=== PATIENT | male | born 1950 | race Caucasian/White ===

== ENCOUNTER 2024-05-28 09:27 | Emergency (ER) | payer BC, MEDICARE, SELFPAY ==
--- NOTE | ~2024-05-28 | XR_ITS ---
EXAMINATION: XR shoulder RT min 2V DATE: 05/28/2024 11:26 INDICATION: Right shoulder pain. TECHNIQUE: 5 views of right shoulder were obtained. COMPARISON: None. FINDINGS: Alignment is normal. No acute fracture. There are old healed right rib fractures. There is mild osteoarthritis of glenohumeral joint and severe osteoarthritis of acromioclavicular joint. IMPRESSION: 1. Polyarticular osteoarthritis. Reviewed, dictated and finalized at location A. WRITER
[2024-05-28 09:39] VITALS: BP 210/84; PULSE 74; RESP 18; TEMP 36.4; O2SAT 100
[2024-05-28] MEDS: LOSARTAN POTASSIUM 100 MG TABLET PO (11:44)
--- NOTE | 2024-05-28 11:48 | ED_ITS ---
HPI - Extremity Problem General Chief complaint: Extremity Problem,Nontraumatic Stated complaint: R arm pain Time Seen by Provider: 05/28/24 11:00 History of Present Illness HPI Narrative: 73-year-old male with history of hypertension presents with daughter at bedside for a spontaneous bruise to his right arm for the past few days. Patient denies injury trauma to the arm. 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 He is reporting some pain to the shoulder but otherwise no tenderness or pain. No numbness or tingling. He is not anticoagulated. Denies history of liver disease. He is found to be hypertensive in the ED and states he ran out of his blood pressure medications 1 week ago. He states his daughter ordered some more than he is supposed to pick them up tomorrow. He denies chest pain or shortness of breath, vision changes, decreased urine output. Related Data Allergies Allergy/AdvReac Type Severity Reaction Status Date / Time No Known Allergies Allergy Verified 05/28/24 11:43 Review of Systems Review of Systems: All systems reviewed & are unremarkable except as noted in HPI and below Exam Narrative: GENERAL: Well-appearing, well-nourished, and in no acute distress. HEAD: Normocephalic, atraumatic. EYES: EOMI. ENT: Nares clear, no rhinorrhea or epistaxis. Mucous membranes moist. NECK: Supple. CHEST: Clear to auscultation. No respiratory distress. HEART: Regular rate and rhythm. No murmur heard. Normal peripheral pulses EXTREMITIES: Normal range of motion. No edema. SKIN: Large area of ecchymosis to the volar aspect of the right upper arm extending from the proximal humerus to the elbow, and no palpable hematoma, fluctuation, induration, significant bony tenderness to the humerus. There is some diffuse tenderness to the right shoulder. Patient has full active and passive range of motion of all joints of the right upper extremity. Sensation intact throughout. DP pulse 2 +. Radial, median, ulnar and axillary nerves are intact. NEURO: No focal deficits. Alert and oriented x3 Course Vital Signs Vital signs: Vital Signs Temperature 97.6 F 05/28/24 09:39 Pulse Rate 74 05/28/24 09:39 Respiratory Rate 18 05/28/24 09:39 Blood Pressure 210/84 H 05/28/24 09:39 Pulse Oximetry 100 05/28/24 09:39 Oxygen Delivery Room Air 05/28/24 09:39 Temperature 97.6 F 05/28/24 09:39 Pulse Rate 74 05/28/24 09:39 Respiratory Rate 18 05/28/24 09:39 Blood Pressure 210/84 H 05/28/24 09:39 Pulse Oximetry 100 05/28/24 09:39 Oxygen Delivery Room Air 05/28/24 09:39 MDM - Extremity (Nontraumatic) MDM Narrative Medical decision making narrative: 73-year-old male with history of hypertension presents to emergency department for a bruise to his right upper arm for the past few days. 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 Exam is significant for a large contusion to the volar aspect of the right upper arm. He is does have minimal tenderness to the right shoulder, therefore x-ray obtained which shows severe osteoarthritis. He is neurovascularly intact and has full active and passive range of motion of all joints of the upper extrem ity. Distal pulses intact. No other significant tenderness. He is not anticoagulated. Overall exam is reassuring. Will provide Tylenol for pain control advised follow-up with PCP. Additionally patient found to be hypertensive at 210/84. Vitals otherwise unremarkable. He denies chest pain, shortness breath, vision changes, decreased urine output, other signs of hypertensive emergency. He has been out of his losartan 100 mg for approximately 1 week but is getting it refilled tomorrow. He was given his dose of losartan in the ED advised to follow up with his PCP. Return precautions discussed. He is agreeable to plan verbalized understanding. Discharged in stable condition. Discharge Plan Discharge Clinical Impression: Asymptomatic hypertension Contusion Qualifiers: Encounter type: initial encounter Contusion area: upper arm Laterality: right Qualified Code(s): S40.021A - Contusion of right upper arm, initial encounter Patient Disposition: Home, Self-Care Condition: Stable Instructions: Antibiotic Form, Contusion in Adults (ED) Additional Instructions: Your evaluated in the emergency department for large bruise to your right arm. Your exam is reassuring. X-ray of your shoulder shows arthritis. You may have bumped her arm into something causing a large bruise. The area will get green and yellow before it resolved. Please follow-up closely with your primary care provider. Return to the Emergency Department if you develop numbness, tingling or weakness to her hand or other concerning symptoms. Your also found to have very high blood pressure. Please make sure you are taking her blood pressure medications daily. Follow-up with your primary care provider regarding this. Return to the emergency department if you develop chest pain, shortness of breath or vision changes. Patient Language: [place] Prescriptions: New acetaminophen 500 mg capsule 500 mg PO Q6H PRN (Reason: pain) Qty: 20 0RF Follow-up/Referrals: UNKNOWN,DOCTOR [Primary Care Provider] -
[2024-05-28 11:59] VITALS: BP 179/91; PULSE 70; RESP 16; TEMP 36.4; O2SAT 100
== END 2024-05-28 12:00 | disposition home or self-care (01) ==
PROVIDERS: Emergency Provider Physician Assistant
DX: S40.021A Contusion of right upper arm, initial encounter (principal); I10 Essential (primary) hypertension; T50.906A Underdosing of unspecified drugs, medicaments and biological substances, initial encounter; Z91.128 Patient's intentional underdosing of medication regimen for other reason; X58.XXXA Exposure to other specified factors, initial encounter
CPT/HCPCS: 73030; 99283; A9270

== ENCOUNTER 2025-01-13 09:01 | Emergency (ER) | payer BC, MEDICARE, SELFPAY ==
--- NOTE | ~2025-01-13 | CT_ITS ---
EXAMINATION: CT abdomen pelvis wo con DATE: 01/13/2025 09:41 INDICATION: Right lower back pain into right TECHNIQUE: Computed tomography (CT) of the abdomen and pelvis was performed without intravenous contrast. The dose-length product was 257.81 mGy-cm. COMPARISON: None. FINDINGS: Indeterminate 1.7 cm low-density lesion in the anterior aspect of the medial segment of the left lobe of the liver. Differential includes focal fatty infiltration or liver mass. A liver mass CT or MRI is recommended. Gallbladder, spleen, adrenal glands and pancreas are unremarkable. There is a 5 mm nonobstructing right renal stone. No hydronephrosis. Abdominal aorta is partially calcified but is not aneurysmal. Bladder is unremarkable. No enlarged lymph nodes in the abdomen or pelvis identified. No free fluid in the abdomen or pelvis identified. No dilated bowel loops. Moderate amount of stool. No colitis. No appendicitis identified. Multilevel degenerative changes visualized spine is prominent in the lumbar spine. Indeterminant 1.9 cm sclerotic lesion in the intramedullary cavity of the proximal left femur. Small right inguinal hernia with fat and a 1.8 x 3.4 cm indeterminate heterogeneous structure within the hernia sac. IMPRESSION: 1. Small right inguinal hernia with fat. There is a 1.8 x 3.4 cm indeterminate heterogeneous structure in the right inguinal hernia sac which may be secondary to an inflammatory or infectious process. Other etiologies including a mass are possible. Follow-up is recommended. No comparison studies are available. 2. Indeterminate 1.7 cm low-density lesion in the left lobe of the liver. Differential includes focal fatty infiltration or liver mass. A liver mass CT or MRI is recommended. 3. Small nonobstructing right renal stone. 4. Indeterminant 1.9 cm sclerotic lesion in the intramedullary cavity of the proximal left femur. Differential includes bone island or metastatic osseous lesion. A total body bone scan is recommended. Reviewed, dictated and finalized at location A. IMPRESSION: 1. Small right inguinal hernia with fat. There is a 1.8 x 3.4 cm indeterminate heterogeneous structure in the right inguinal hernia sac which may be secondary to an inflammatory or infectious process. Other etiologies including a mass ar e possible. Follow-up is recommended. No comparison studies are available. 2. Indeterminate 1.7 cm low-density lesion in the left lobe of the liver. Diffe rential includes focal fatty infiltration or liver mass. A liver mass CT or MRI is recommended. 3. Small nonobstructing right renal stone. 4. Indeterminant 1.9 cm sclerotic lesion in the intramedullary cavity of the pr oximal left femur. Differential includes bone island or metastatic osseous lesi on. A total body bone scan is recommended.
[2025-01-13 09:06] VITALS: BP 173/87; PULSE 97; RESP 18; TEMP 36.5; O2SAT 99
--- OUTSIDE RECORDS SUMMARY | 2025-01-13 09:26 | XMS_ITS | Patient Health Record ---
Author Organization [facility] Address [address] [place] [address] Care Team Providers Care Head Of Academic Technology Name Role Phone Edda Bird DO Primary Care Provider Unavailab Gabino Carlisle Unavailable [phone] Carol BRODY, Jose Unavailable Unavailable Reason For Referral No Information Medications Medication SIG (Take, Route, Fr equency, Duration) Notes Start Date End Date Status Omeprazole 40 MG 1 capsule 30 minutes before morning meal Orally Once a day for 90 days 05/28/2022 Active Problems Problem Type SNOMED Code ICD Code Onset Dates Problem Status W/U Status Risk Notes Problem [id number] Iron deficiency anemia, unspecified (D50.9) Active confirmed Problem [id number] Diverticulosis o f large intestine without perforation or abscess without bleeding (K57.30) Active confirmed Plan Of Treatment No Information Insurance Providers Payer Name Payer Address Payer Phone Subscriber Number Group Number Insured Name Patient Relationship to Insured Coverage Start Date Coverage End Date Blue Access Choice PPO E2 [address] [place] [address] [id number] Narda Silas Self - patient is the insured [employer] Medicare Elite PPO [address] [place] [address] [id number] Silas Laboy Self - patient is the insured 2 [facility] Medicare Advantage Ppo [address] [address] [place] [address] [phone] [id number] Silas Laboy Self - patient is the insured 3
--- OUTSIDE RECORDS SUMMARY | 2025-01-13 09:26 | XMS_ITS | Clinical Summary ---
Author Organization [facility] Address [address] [facility] [place] [address] Phone Care Team Providers Care Cryptanalyst Name Role Phone Edda Bird DO Primary Care Provider [phone] Medications aspirin (DEEPAK) 81 mg Oral TabIndications:E ssential hypertension, benign Take 1 Tab by mouth daily. 100 Tab 0 06/30/2012 Active Fish Oil-DHA-EPA 1,200-144-216 mg Oral CapIndications:H ypercholesteremi a Take 4 Gram by mouth daily at bedtime. 100 Cap 0 07/21/2012 Active losartan (COZAAR) 50 mg tablet TAKE 1 TABLET BY MOUTH EVERY DAY 90 Tablet 05/22/2016 Active ferrous sulfate 325 mg (65 mg iron) tablet Take 325 mg by mouth daily. Active naproxen (NAPROSYN) 500 mg tablet Take 500 mg by mouth 2 times daily with meals. Active traZODone (DESYREL) 100 mg tablet Take 100 mg by mouth daily at bedtime. Active oxyCODONE-acetam inophen (PERCOCET) 5-325 mg tablet 05/05/2019 Active Active Problems Problem Noted Date Diagnosed Date Arthritis 02/15/2014 Hypercholesteremia 07/21/2012 Essential hypertension, benign 09/25/2009 Resolved Problems Problem Noted Date Diagnosed Date Resolved Date IFG (impaired fasting glucose) 07/21/2012 08/08/2014 Immunizations Immunization Administration Dates Next Due (ADACEL/BOOSTRIX)(10 YR UP) TDAP VACCINE, 0.5ML, IM 09/25/2009 Influenza Seasonal Unspecified Formulation IM Family History Medical History Relation Name Comments Hypertension Brother Relation Name Status Comments Brother Alive Father Mother Social History Tobacco Use Types Packs/Day Years Used Date Smoking Tobacco: Former Cigarettes Q uit: 09/26/1999 Smokeless Tobacco: Never Comments:Quit 10 yrs ago. 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 Gender Identity Not on file Sexual Orientation Not on file Occupation Industry Job Start Date Job End Date Not on file Not on file Not on file Not on file Last Filed Vital Signs Vital Sign Reading Time Taken Comments Blood Pressure 148/68 06/03/2019 3:29 PM AS400 PROGRAMMER ANALYST Pulse 64 06/03/2019 3:29 PM AS400 PROGRAMMER ANALYST Temperature 36.4 C (97.6 F) 04/02/2019 7:30 AM AS400 PROGRAMMER ANALYST Respiratory Rate 18 04/02/2019 11:15 AM AS400 PROGRAMMER ANALYST Oxygen Saturation 100% 04/02/2019 11:15 AM AS400 PROGRAMMER ANALYST Inhaled Oxygen Concentration - - Weight 73.9 kg (163 lb) 06/03/2019 3:29 PM AS400 PROGRAMMER ANALYST Height 172.7 cm (5' 8) 06/03/2019 3:29 PM AS400 PROGRAMMER ANALYST Body Mass Index 24.78 06/03/2019 3:29 PM AS400 PROGRAMMER ANALYST Plan of Treatment Health Maintenance Due Date Last Done Comments FIT-DNA Q 3 years 11/29/1996 Flex Sig/CT Colonography Q 5 years 11/29/1996 PNEUMOCOCCAL VACCINE 50+ YEA RS (1 of 1 - PCV) 11/29/2001 ZOSTER VACCINE (1 of 2) 11/29/2001 FIT/FOBT Q 1 year 08/09/2015 08/08/2014, 06/20/2010 DTAP/TDAP/TD VACCINES (2 - Td or Tdap) 09/26/2019 COLORECTAL SCREENING 03/22/2024 03/22/2014, 03/22/20 14 Colorectal Cancer Screening 03/22/2024 INFLUENZA VACCINE (#1) 2024 03/14/2019 RSV VACCINE (60+ or ) (1 - 1-dose 75+ series) 11/29/2026 Procedures Procedure Name Priority Date/Time Associated Diagnosis Comments POC OCCULT BLOOD UP TO 3 CARDS Routine 08/08/2014 9:14 AM CDT Well adult exam Screen for colon cancer from Last 3 Months or Most Recently Relevant to Health Maintenance Results * POC OCCULT BLOOD UP TO 3 CARDS (08/08/2014 9:14 AM CDT) OCCULT BLOOD #1 Negative Negative [facility] OCCULT BLOOD #2 Negative [facility] OCCULT BLOOD #3 Negative [facility] Stool specimen (specimen) 08/08/2014 9:14 AM CDT us Nikolai Vasquez DO POINT OF CARE TESTING Final Resu lt [facility] from Last 3 Months or Most Recently Relevant to Health Maintenance Insurance [facility] Advance Directives For more information, please contact: [phone] * Full Code (Latest Code Status on File) Date Activated Date Inactivated Comments 04/02/2019 1:22 PM 04/02/2019 5:13 PM * Full Code Date Activated Date Inactivated Comments 03/22/2014 8:06 AM 03/22/2014 11:57 AM Care Teams Cryptanalyst Relationship Specialty Start Date End Date Edda Bird DO [address] [place] [phone] PCP - General Family Practice 03/19/19
--- OUTSIDE RECORDS SUMMARY | 2025-01-13 09:26 | XMS_ITS | Clinical Summary ---
Author Organization [facility] [address] Address [address] [place] [address] Care Team Providers Care Manager Editorial Name Role Phone oTmi Stringer MD Primary Care P rovider Ravinder Lees MD Unavailable [phone] Allergies No known active allergies Medications ferrous sulfate 325 mg (65 mg of elemental iron) tabletIndication s:Iron deficiency anemia, unspecified iron deficiency anemia type Take 1 tablet (325 mg total) by mouth daily 30 tablet 4 Active losartan (COZAAR) 100 mg tablet Take 1 tablet (100 mg total) by mouth every morning Active omeprazole (PriLOSEC) 40 mg capsule Take 1 capsule (40 mg total) by mouth daily 3 Active tamsulosin (FLOMAX) 0.4 mg extended release capsule Take 1 capsule (0.4 mg total) by mouth nightly Active HYDROcodone-acet aminophen (NORCO) 5-325 mg per tabletIndication s:Pain Take 1-2 tablets by mouth every 4 (four) hours as needed for pain (Do not take more than 10 tablets in any 24 hour period.) 30 tablet 4 Active Additional Information Patient not taking.Reported on 12/26/2023 Active Problems Problem Noted Date Diagnosed Date Encounter for surgical follow-up care 12/26/2023 Ventral hernia without obstruction or gangrene 0 12/05/2023 Assessment & Plan (12/05/2023 9:51 AM CDT): This 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 The risks and benefits of repair were discussed with the patient. He makes an informed decision to proceed as planned with open repair of his ventral hernia with possible mesh placement next week. Immunizations Immunization Administration Dates Next Due Influenza, Trivalent, IM (MDV) 03/14/2019 Tdap 07/10/2023,09/25/2009 Surgical History Surgery Date Site/Laterality Comments HERNIA REPAIR 05/26/2018 - 05/25/2019 umbilical INGUINAL HERNIA REPAIR 05/26/2020 - 05/25/2021 Right VENTRAL HERNIA REPAIR 12/12/2023 Right Medical History Medical History Date Comments Hypertension Tonsillar mass GERD (gastroesophageal reflux disease) Social History Tobacco Use Types Packs/Day Years Used Date Smoking Tobacco: Former Cigarettes Smokeless Tobacco: Never Tobacco Cessation:Counseling Given: Not Answered AUDIT-C Answer Date Recorded Q1: How often do you have a drink containing alcohol? 4 or more times a week 12/10/2023 Q2: How many drinks containi ng alcohol do you have on a typical day when you are drinking? 1 or 2 Q3: How often do you have si x or more drinks on one occasion? Never 12/10/2023 Personal Safety Answer Date Recorded Have you ever been in or are you currently in a harmful physical or emotional relationship or is someone making you feel afraid or unsafe? 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 Gender Identity Not on file Sexual Orientation Not on file Obstetrics History Last Filed Vital Signs Vital Sign Reading Time Taken Comments Blood Pressure 148/70 12/26/2023 8:44 AM CDT Pulse 101 12/26/2023 8:44 AM CDT Temperature 37 C (98.6 F) 12/12/2023 12:35 PM CDT Respiratory Rate 20 12/26/2023 8:44 AM CDT Oxygen Saturation 99% 12/26/2023 8:44 AM CDT Inhaled Oxygen Concentration - - Weight 64 kg (141 lb) 12/26/2023 8:44 AM CDT Height 170.2 cm (5' 7) 12/26/2023 8:44 AM CDT Body Mass Index 22.08 12/26/2023 8:44 AM CDT Plan of Treatment Health Maintenance Due Date Last Done Comments Depression Screening 1950 Hepatitis C Screening 1950 Hepatitis B Screening 11/29/1969 Pneumococcal vaccine 65+ (1 of 1 - PCV) 11/29/2001 Zoster Vaccine (1 of 2) 11/29/2001 Abdominal Aortic Aneurysm (AAA) Screen 11/29/2016 Well Visit 65+ 11/29/2016 Fall Risk Assessment 12/09/2024 12/10/2023 Influenza Vaccine (#1) 2025 03/14/2019 Colon Cancer Screening-Colonoscopy 04/16/20272021 DTaP/Tdap/Td Vaccine (3 - Td or Tdap) 07/10/2033, 09/25/2009 Procedures Procedure Name Priority Date/Time Associated Diagnosis Comments COLONOSCOPY Routine 04/16/2022 11:57 AM MELLOWING MACHINE OPERATOR from Last 3 Months or Most Recently Relevant to Health Maintenance Results * HM COLONOSCOPY (04/16/2022 11:57 AM MELLOWING MACHINE OPERATOR) Historical Provider HEALTH MAINTENANCE Final Result from Last 3 Months or Most Recently Relevant to Health Maintenance Insurance [facility] OOS Member Subscriber Plan / Payer (Ef fective 2023-Present) Name:Silas Laboy Relation to Subscriber:Self Name:Silas Laboy Payer ID:[id number] (IC) Type:SHENA AHUMADA Address: [facility] [address] [facility]IC[facility] Address: [facility] [address] [place] [address] Care Teams Manager Editorial Relationship Specialty Start Date End Date Tomi Stringer MD [address] [place] [address] PCP - General Family Medicine 11/28/23 Ravinder Lees MD [address] [place] [address] Consulting Physician General Surgery 12/12/23
--- OUTSIDE RECORDS SUMMARY | 2025-01-13 09:26 | XMS_ITS | Clinical Summary ---
Author Organization [facility] Address [address] [place] [address] Care Team Providers Care Estimator Printing Name Role Phone Edda Bird Primary Care Provider [phone] Source Comments [facility],non-owned Affiliates and Associated Physician Practices is amultiple site organization consisting of ambulatory clinics and hospital sitesin [place], [place], [place] and [place]. This disclosure is being madepursuant to the Care Everywhere program and may not contain all information available regarding this patient. Last updated 18.[facility] Allergies No known active allergies Medications * Be aware that medications may not be up to date on this document. Alwaysverify current medications with the patient. Fish Oil-Cholecalcife rol (FISH OIL + D3 PO) Take 1 Cap by mouth. Active losartan (Cozaar) 50 MG tablet 04/07/2023 Active omeprazole (PriLOSEC) 40 MG capsule 03/06/2023 Active tamsulosin (Flomax) 0.4 MG capsule 03/30/2023 Active aspirin EC (Ecotrin) 81 MG tablet Take 1 (one) tablet by mouth once daily Active Active Problems Problem Noted Date Diagnosed Date Wrist pain 09/14/2013 HTN (hypertension) 09/14/2013 Carpal tunnel syndrome 09/14/2013 Family History Relation Name Status Comments Father Mother Social History Tobacco Use Types Packs/Day Years Used Date Smoking Tobacco: Former Cigarettes Q uit: 08/12/2013 Tobacco Cessation:Counseling Given: Not Answered Alcohol Use Standard Drinks/Week Comments Yes 2 (1 standard drink = 0.6 oz pur e alcohol) Sex and Gender Information Value Date Recorded Sex Assigned at Not on file Legal Sex Male 5:58 AM HR GENERALIST Gender Identity Not on file Sexual Orientation Not on file Last Filed Vital Signs Vital Sign Reading Time Taken Comments Blood Pressure 158/76 06/20/2023 8:17 AM HR GENERALIST Pulse 74 06/20/2023 8:17 AM HR GENERALIST Temperature 36.7 C (98 F) 01/10/2015 9:21 AM CDT Respiratory Rate 18 01/10/2015 9:21 AM CDT Oxygen Saturation 98% 06/20/2023 8:17 AM HR GENERALIST Inhaled Oxygen Concentration - - Weight 63.5 kg (140 lb) 06/20/2023 8:17 AM HR GENERALIST Height 170.2 cm (5' 7) 06/20/2023 8:17 AM HR GENERALIST Body Mass Index 21.93 06/20/2023 8:17 AM HR GENERALIST Plan of Treatment Health Maintenance Due Date Last Done Comments COLOGUARD (AGES 45-75) - COL ON CA SCREENING 1950 COLON MONITORING 1950 COLONOSCOPY - COLON CA SCREENING 1950 CT COLONOGRAPHY - COLON CA SCREENING 1950 Colorectal Cancer Screening 1950 FIT - COLON CA SCREENING 1950 FLEX SIG - COLON CA SCREENING 1950 LIPID TESTING 1950 HEPATITIS C SCREENING 11/25/1969 DTAP/TDAP/TD VACCINES (1 - Tdap) 11/29/1970 PNEUMOCOCCAL VACCINE 50+ (1 of 1 - PCV) 11/29/2001 ZOSTER VACCINE (1 of 2) 11/29/2001 AAA SCREENING 11/29/2016 COVID-19 VACCINE (1 - 2023-2 5 season) 2024 DEPRESSION SCREENING 05/26/2024 MEDICARE AWV CALENDAR YEAR 2024 INFLUENZA VACCINE (#1) 2025 03/14/2019 Respiratory Syncytial Virus (RSV) Vaccine Pt: or over 60 yrs (1 - 1-dose 75+ series) 11/29/2026 HEPATITIS B VACCINE Aged Out No longe r eligible based on patient's age to complete this topic HIB VACCINE Aged Out No longer eligi ble based on patient's age to complete this topic HPV VACCINE Aged Out No longer eligi ble based on patient's age to complete this topic MENINGOCOCCAL (Group B) VACC INE SHARED DECISION-MAKING Aged Out No longer eligibl e based on patient's age to complete this topic MENINGOCOCCAL GROUPS A/C/Y/W VACCINE Aged Out No longer eligible b ased on patient's age to complete this topic Insurance [facility] MANAGED MEDICARE ADV ANTHEM Care Teams Estimator Printing Relationship Specialty Start Date End Date Edda Bird DO [address] [place] [id number] PCP - General Family Medicine 04/10/23
--- NOTE | 2025-01-13 09:38 | ED.BACK ---
HPI - Back Pain/Injury General Chief Complaint: Back Pain/Injury Stated Complaint: back pain Time Seen by Provider: 01/13/25 09:07 Source: patient Mode of arrival: ambulatory Limitations: no limitations History of Present Illness HPI Narrative: Patient is a 74 y/o male who presents to the ED with c/o R lower back pain. Patient reports having pain throughout his right lower back, radiating into his right groin, down his anterior right thigh down to his R knee. Reports pain has been intermittent for the past 2 weeks. Denies any fall or injury. Worse with certain movements. Has been taking ibuprofen and Tylenol without improvement. Denies saddle anesthesia, numbness of extremity, bowel or bladder incontinence, difficulty urinating. Related Data Allergies Allergy/AdvReac Type Severity Reaction Status Date / Time No Known Allergies Allergy Verified 05/28/24 11:43 Review of Systems Review of Systems: All systems reviewed & are unremarkable except as noted in HPI. All systems reviewed & are unremarkable except as noted in HPI and below Exam Narrative: GENERAL: Well appearing, well-nourished, non-toxic, in no acute distress. HEAD: Normocephalic, atraumatic. RESPIRATORY: Airway patent, respirations nonlabored. CARDIOVASCULAR: Regular rate and rhythm. Pedal pulses are intact and easily palpable. ABDOMINAL: Soft, nontender, nondistended. Normoactive BS. MUSCULOSKELETAL: Moves all extremities. No gross deformities. No significant midline lumbar spinal tenderness. Tenderness palpation in right lumbosacral/SI region. No significant discomfort reported with straight leg raise on right. Sensation intact throughout extremity. SKIN: Warm, dry, normal color. NEURO: A&O X3. Speech clear. Cranial nerves II-XII grossly intact. Steady gait. No ataxic movements. PSYCHIATRIC: Appropriate mood and affect. Normal interaction. Course Vital Signs Vital signs: Vital Signs Temperature 97.7 F 01/13/25 09:06 Pulse Rate 97 01/13/25 09:06 Respiratory Rate 18 01/13/25 09:06 Blood Pressure 173/87 H 01/13/25 09:06 Pulse Oximetry 99 01/13/25 09:06 Temperature 97.7 F 01/13/25 09:06 Pulse Rate 88 01/13/25 11:01 Respiratory Rate 18 01/13/25 11:01 Blood Pressure 163/101 H 01/13/25 11:01 Pulse Oximetry 98 01/13/25 11:01 MDM - Back Pain/Injury MDM Narrative Medical decision making narrative: Patient?s pain is positional and localized to paraspinal muscles without signs of cord compression or cauda equina. Normal neurologic exams. No red flag symptoms. No fever noted and no significant risk factors for osteomyelitis or spinal epidural abscess. No symptoms or signs to suggest pain is referred from abdominal or source. CT abd/pelvis obtained and showed evidence of R inguinal hernia. Does also show multilevel degenerative changes throughout lumbar spine. Small right renal stone. No ureterolithiasis. Lesion to liver, lesion to left femur. Made patient aware of these that they will need further outpatient imaging with PCP. On exam, inguinal hernia is very small, reducible, minimally tender. No overlying skin changes to suggest infected is to etiology. Do not feel this is likely the cause of patient's symptoms. Discussed that it may be contributing to pain, but felt more so that pain was related to lumbar strain/sciatica. Patient is feeling much improved with supportive therapy in the ED. Patient ambulates with a steady gait and is felt to be a reasonable candidate for continued outpatient management. Will discharge with muscle relaxers and lidocaine patches. Recommended close follow-up with PCP. Also referred to general surgery for evaluation of hernia. Discussed strict return precautions. Patient in agreement with plan. Discharged in stable condition. Medical Records Attestation: I reviewed the patient's medical records. Imaging Data Attestation: I personally reviewed and interpreted this imaging study as follows: Radiologist's impression: ITS Impressions Abdomen/Pelvis CT 01/13/25 09:54 IMPRESSION: 1. Small right inguinal hernia with fat. There is a 1.8 x 3.4 cm indeterminate heterogeneous structure in the right inguinal hernia sac which may be secondary to an inflammatory or infectious process. Other etiologies including a mass are possible. Follow-up is recommended. No comparison studies are available. 2. Indeterminate 1.7 cm low-density lesion in the left lobe of the liver. Differential includes focal fatty infiltration or liver mass. A liver mass CT or MRI is recommended. 3. Small nonobstructing right renal stone. 4. Indeterminant 1.9 cm sclerotic lesion in the intramedullary cavity of the proximal left femur. Differential includes bone island or metastatic osseous lesion. A total body bone scan is recommended. Discharge Plan Discharge Clinical Impression: Lumbar radiculopathy, Right inguinal hernia, Lesion of liver, Lesion of femur Strain of lumbar region Qualifiers: Encounter type: initial encounter Qualified Code(s): S39.012A - Strain of muscle, fascia and tendon of lower back, initial encounter Patient Disposition: Home Condition: Stable Instructions: Antibiotic Form, Inguinal Hernia (ED), Acute Low Back Pain (ED), Lower Back Exercises (ED) Additional Instructions: Continue Tylenol and Ibuprofen as needed for pain. You may use ice/heat, lidocaine patches to area of pain. Take muscle relaxers as needed and prescribed. Recommend taking these at night as they may cause sedation. Do not drive, operate heavy machinery, drink alcohol while on muscle relaxers as this may cause further sedation. Your imaging did show evidence of a right inguinal/groin hernia. Recommend gentle palpation of this if you do feel a bulge in your groin region. You may follow-up with General surgery for further evaluation of hernia. Follow-up with your primary care doctor for further evaluation. Return to the ED if you experience worsening or severe pain, recurrent injury, numbness in groin or legs, going to the bathroom without meaning to, unable to keep down food or drink, or any other symptoms of concern. Your imaging here showed a lesion of your liver as well as a lesion of your left femur. It is recommended that you follow-up with your primary care doctor for further evaluation and imaging of this. Patient Language: Kyrgyz Prescriptions: New lidocaine 5 % adhesive patch,medicated 1 patch topical DAILY Qty: 15 0RF Rx Instructions: leave on most painful area for up to 12 hrs cyclobenzaprine 5 mg tablet 5 mg PO TID PRN (Reason: muscle spasm) Qty: 15 0RF No Action acetaminophen 500 mg capsule 500 mg PO Q6H PRN (Reason: pain) Qty: 20 0RF Follow-up/Referrals: PHYSICIAN NOT ON STAFF,NONSTAFF [Primary Care Provider] Jose Jamil MD [Physician, General Surgery] Referral Note: GENERAL SURGERY Stand Alone Forms: Work/School Release IP Time of Disposition: 11:07
[2025-01-13] MEDS: CYCLOBENZAPRINE HCL 5 MG TABLET PO (09:49)
[2025-01-13] MEDS: HYDROcodone/acetaminophen (*CRX) 5-325 MG TABLET 1 TAB PO (09:49)
--- OUTSIDE RECORDS SUMMARY | 2025-01-13 09:55 | XMS_ITS | Clinical Summary ---
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 Gender Identity Not on file Sexual Orientation [...] Diagnosis Comments COLONOSCOPY Routine 04/16/2022 11:57 AM FISHING GUIDE from Last 3 Months or Most Recently Relevant to Health Maintenance Results * HM COLONOSCOPY (04/16/2022 11:57 AM FISHING GUIDE) Historical Provider HEALTH MAINTENANCE Final Result from Last 3 Months or Most Recently Relevant to Health Maintenance Insurance [facility] OOS Member Subscriber Plan / Payer (Ef fective 2023-Present) Name:Silas Laboy Relation to Subscriber:Self Name:Silas Laboy Payer ID:[id number] (IC) Type:SHENA AHUMADA Address: [facility] [id number] MEDICARE ADVANTAGE [facility] MEDICARE Address: [facility] [address] [place] [address] Care Teams Garbage Man Relationship Specialty Start Date End Date Tomi Stringer MD [address] [place] [address] PCP - General Family Medicine 11/28/23 Ravinder Lees MD [address] [place] [address] Consulting Physician General Surgery 12/12/23
--- OUTSIDE RECORDS SUMMARY | 2025-01-13 09:55 | XMS_ITS | Clinical Summary ---
Author Organization [facility] Address [address] [place] [address] Care Team Providers Care Project Associate Name Role Phone Edda Bird Primary Care Provider [phone] Source Comments [facility],non-owned Affiliates and Associated Physician Practices is amultiple site organization consisting of ambulatory clinics and hospital sitesin [place], [place], [place] and [place]. This disclosure is being madepursuant to the Care Everywhere program and may not contain all information available regarding this patient. Last updated 18.[facility] [employer] Allergies No known active allergies Medications * [...] on file Legal Sex Male 5:58 AM BUSINESS DEVELOPMENT COORDINATOR Gender Identity Not on file Sexual Orientation Not on file Last Filed Vital Signs Vital Sign Reading Time Taken Comments Blood Pressure 158/76 06/20/2023 8:17 AM BUSINESS DEVELOPMENT COORDINATOR Pulse 74 06/20/2023 8:17 AM BUSINESS DEVELOPMENT COORDINATOR Temperature 36.7 C (98 F) 01/10/2015 9:21 AM CDT Respiratory Rate 18 01/10/2015 9:21 AM CDT Oxygen Saturation 98% 06/20/2023 8:17 AM BUSINESS DEVELOPMENT COORDINATOR Inhaled Oxygen Concentration - - Weight 63.5 kg (140 lb) 06/20/2023 8:17 AM BUSINESS DEVELOPMENT COORDINATOR Height 170.2 cm (5' 7) 06/20/2023 8:17 AM BUSINESS DEVELOPMENT COORDINATOR Body Mass Index 21.93 06/20/2023 8:17 AM BUSINESS DEVELOPMENT COORDINATOR Plan of Treatment Health Maintenance Due Date [...] patient's age to complete this topic Insurance [facility] MANAGED MEDICARE ADV ANTHEM Care Teams Project Associate Relationship Specialty Start Date End Date Edda Bidr DO [address] [place] [id number] PCP - General Family Medicine 04/10/23
--- OUTSIDE RECORDS SUMMARY | 2025-01-13 09:55 | XMS_ITS | Clinical Summary ---
Author Organization [facility] Address [address] [facility] [place] [address] Phone Care Team Providers Care Vp Client Services Name Role Phone Edda Bird DO Primary Care Provider [phone] Medications aspirin (DEEPAK) 81 mg Oral TabIndications:E [...] on file Legal Sex Male 3:18 AM TRANSPLANT NURSE PRACTITIONER Gender Identity Not on file Sexual Orientation Not on file Occupation Industry Job Start Date Job End Date Not on file Not on file Not on file Not on file Last Filed Vital Signs Vital Sign Reading Time Taken Comments Blood Pressure 148/68 06/03/2019 3:29 PM TRANSPLANT NURSE PRACTITIONER Pulse 64 06/03/2019 3:29 PM TRANSPLANT NURSE PRACTITIONER Temperature 36.4 C (97.6 F) 04/02/2019 7:30 AM TRANSPLANT NURSE PRACTITIONER Respiratory Rate 18 04/02/2019 11:15 AM TRANSPLANT NURSE PRACTITIONER Oxygen Saturation 100% 04/02/2019 11:15 AM TRANSPLANT NURSE PRACTITIONER Inhaled Oxygen Concentration - - Weight 73.9 kg (163 lb) 06/03/2019 3:29 PM TRANSPLANT NURSE PRACTITIONER Height 172.7 cm (5' 8) 06/03/2019 3:29 PM TRANSPLANT NURSE PRACTITIONER Body Mass Index 24.78 06/03/2019 3:29 PM TRANSPLANT NURSE PRACTITIONER Plan of Treatment Health Maintenance Due Date [...] Most Recently Relevant to Health Maintenance Insurance [facility] Advance Directives For more information, please contact: [phone] * Full Code (Latest Code Status on File) Date Activated Date Inactivated Comments 04/02/2019 1:22 PM 04/02/2019 5:13 PM * Full Code Date Activated Date Inactivated Comments 03/22/2014 8:06 AM 03/22/2014 11:57 AM Care Teams Vp Client Services Relationship Specialty Start Date End Date Edda Bird DO [address] [place] [id number] PCP - General Family Practice 03/19/19
[2025-01-13 11:01] VITALS: BP 163/101; PULSE 88; RESP 18; O2SAT 98
== END 2025-01-13 11:30 | disposition home or self-care (01) ==
PROVIDERS: Emergency Provider Physician Assistant
DX: S39.012A Strain of muscle, fascia and tendon of lower back, initial encounter (principal); K76.9 Liver disease, unspecified; M89.9 Disorder of bone, unspecified; K40.90 Unilateral inguinal hernia, without obstruction or gangrene, not specified as recurrent; M54.16 Radiculopathy, lumbar region; N20.0 Calculus of kidney; X58.XXXA Exposure to other specified factors, initial encounter
CPT/HCPCS: 74176; 96372; 99284; A9270; J2919